=== PATIENT | male | born 1945 | race Caucasian/White ===

== ENCOUNTER 2024-01-31 08:24 | Day surgery (SDC) | payer MEDICARE ==
[2024-01-31] VITALS (17 sets, daily range): BP systolic 110–186; BP diastolic 52–97; PULSE 52–78; TEMP 97.9–98.4
[~2024-01-31] VITALS: Ht 180.3 cm; Wt 85.1 kg
[~2024-01-31 08:24] MED LIST: 1/2 NS 1,000 ML IV SCH
[2024-01-31] MEDS ORDERED: CENTRUM SILVER1 CTB PO (08:49)
[2024-01-31] MEDS ORDERED: TYLENOL 500MG500 MG PO (08:49)
[2024-01-31] MEDS ORDERED: PRAVACHOL 40MG40 MG PO (08:50)
[2024-01-31] MEDS ORDERED: TOPROL XL 50MG50 MG PO (08:50)
[2024-01-31] MEDS ORDERED: ASPIRIN 81M81 MG/TA2 PO (08:50)
[2024-01-31] MEDS ORDERED: MELATIN 3 MG-11 TAB PO (08:51)
[2024-01-31 09:12] LABS: HEMATOCRIT 49.2 % (42.0-52.0); HEMOGLOBIN 16.8 g/dl (13.5-18.0); MEAN CELL VOLUME 93 fl (80.0-100.0); MEAN CORPUSCULAR HEMOGLOBIN 32 pg (27-31); MEAN CORPUSCULAR HGB CONC 34 g/dl (33.0-37.0); MEAN PLATELET VOLUME 9.6 fl (7.4-10.4); PLATELET COUNT 230 K/mm3 (130-400); RED BLOOD COUNT 5.32 M/mm3 (4.20-5.60); REDCELL DISTRIBUTION WIDTH-CV 13.2 % (11.5-14.5)
[2024-01-31 09:15] LABS: INR 1.1 (0.8-3.0); PROTHROMBIN TIME 11.5 SECONDS (9.7-12.8)
[2024-01-31 09:17] LABS: PARTIAL THROMBOPLASTIN TIME 33.5 SECONDS (26.0-37.0)
[2024-01-31 09:26] LABS: CALCIUM 10.4 mg/dL (8.4-10.2); CREATININE, serum 1.03 mg/dL (0.72-1.25); POTASSIUM 4.5 mEq/L (3.5-4.5)
[2024-01-31] MEDS ORDERED: Nitroglycerin 100 MCG/ML (Cath Lab) 10 ML VIAL IA SCH (10:21)
[2024-01-31] MEDS ORDERED: Heparin 1,000 UNITS/ML 10 ML Multi-Dose VIAL IV SCH (10:22)
[2024-01-31] MEDS ORDERED: Verapamil 2.5 MG/ML 2 ML VIAL IA SCH (10:22)
--- NOTE | 2024-01-31 10:26 | NUR ---
See Merge report for procedural sedation/notes
[2024-01-31] MEDS ORDERED: Bivalirudin 250 MG in NS 50 ML IV SCH (10:38)
[2024-01-31] MEDS ORDERED: Iohexol 350 - 100 ML VIAL INCOR ONE (10:48)
[2024-01-31] MEDS ORDERED: Ticagrelor 90 MG TAB PO SCH ×2 (10:50→21:00)
[2024-01-31] MEDS ORDERED: fentaNYL 50 MCG/ML 2 ML VIAL IV SCH (10:56)
[2024-01-31] MEDS ORDERED: Midazolam 2 MG/2 ML VIAL IV SCH (10:57)
[2024-01-31] MEDS ORDERED: Bisacodyl 5 MG TAB PO PRN (11:00)
[2024-01-31] MEDS ORDERED: Melatonin 3 MG TAB PO PRN (11:00)
[2024-01-31] MEDS ORDERED: Magnes Hydrox (MOM) 80 MG/ML 30 ML CUP PO PRN (11:15)
[2024-01-31] MEDS ORDERED: 1/2 NS 1,000 ML IV SCH (11:15)
[2024-01-31] MEDS ORDERED: Acetaminophen 500 MG TAB PO PRN (11:15)
[2024-01-31] MEDS ORDERED: Ondansetron 4 MG/2 ML VIAL IV PRN (11:15)
--- NOTE | 2024-01-31 11:15 | NUR ---
Pt to Medical 317 - bedisde handoff performed with KOBI Beard: vitals initiated and stable, rt radial access site stable, call light in reach, tolerating po intake well.
--- NOTE | 2024-01-31 11:51 | NUR ---
Pt arrived to medical floor by bed from [facility]. Report received from KOBI Peacock. Admission assessment and intake completed. Home medications, pharmacy, and allergies reviewed. Rt radial cath site patent with scant drainage under radial compression band. No hematoma present. Pt denies pain at this time rating 0/10. Oriented pt to room, call light, and bathroom. Telemetry in place. Post op vital signs stable. IVF infusing into RAC with no complications. Pt has no complaints at this time. Call light within reach.
[2024-01-31] MEDS ORDERED: ASPIRIN 32325 MG/TAB PO (14:24)
[2024-01-31] MEDS ORDERED: TYLENOL PM EXTR1 TA1 PO (14:26)
[2024-01-31] MEDS ORDERED: DRAMAMINE 50MG50 MG PO (14:27)
--- NOTE | 2024-01-31 16:11 | NUR ---
Rt radial compression band removed. Heart cath insertion site CDI covered with bandaid. Pt has no complaints of pain at this time. Call light within reach.
[2024-01-31] MEDS ORDERED: Atorvastatin 80 MG TAB PO SCH (21:00)
--- NOTE | 2024-01-31 21:17 | NUR ---
patient lying in bed, alert and oriented x4. denies chest pain and shortnes of breath. IV in RAC is patent, site is CDI. right radial site bandaid falling off, new bandaid placed, CDI. pt educated of plan for the morning, verbally understood. pt has no further needs, questions, or concerns at this time. ambulating with steady gait. call light within reach. will continue to monitor,
[2024-02-01] VITALS (20 sets, daily range): BP systolic 109–186; BP diastolic 61–99; PULSE 68–102; TEMP 97.4–97.8
--- NOTE | 2024-02-01 01:36 | NUR ---
2340-pt reporting difficulty voiding, bladder distended. bladder scan performed, reading showed 820 mls, per orders straight cath performed getting 860 mls of blood tinged urine, upon removal of catheter, tip clogged off with blood clot. 3mls residual shown on post straight cath bladder scan. 0100- tele notified RN of pt in aflutter, vitals stable. 0130- Dr. Muir notified of bloody urine and aflutter, no new orders received at this time, will address in the morning per Dr. Muir. 0142- tele notified RN of pt in afib RVR. Dr. Muir notified, new orders received and placed at this time.
[2024-02-01] MEDS ORDERED: Amiodarone 450 MG in D5W Excel 250 ML IV SCH ×2 (02:00→08:08)
[2024-02-01 02:41] LABS: BASO # 0.1 K/mm3 (0.0-0.2); BASO % 0.6 % (0.0-2.0); EOS # 0.2 K/mm3 (0.0-0.7); GRAN # 10.3 K/mm3 (1.4-6.5); GRAN % 70.1 % (42.2-75.2); HEMATOCRIT 50.1 % (42.0-52.0); HEMOGLOBIN 17.7 g/dl (13.5-18.0); LYMPH # 2.9 K/mm3 (1.2-3.4); LYMPH % 19.5 % (20.0-51.0); MEAN CELL VOLUME 90 fl (80.0-100.0); MEAN CORPUSCULAR HEMOGLOBIN 32 pg (27-31); MEAN CORPUSCULAR HGB CONC 35 g/dl (33.0-37.0); MEAN PLATELET VOLUME 10.1 fl (7.4-10.4); MONO # 1.3 K/mm3 (0.1-0.6); MONO % 8.5 % (1.7-9.3); PLATELET COUNT 231 K/mm3 (130-400); RED BLOOD COUNT 5.55 M/mm3 (4.20-5.60); REDCELL DISTRIBUTION WIDTH-CV 12.8 % (11.5-14.5)
[2024-02-01 02:55] LABS: CALCIUM 10.4 mg/dL (8.4-10.2); CREATININE, serum 0.98 mg/dL (0.72-1.25); POTASSIUM 4.1 mEq/L (3.5-4.5)
--- NOTE | 2024-02-01 07:04 | NUR ---
Bedside report received from KOBI Stephens. Pt awake in bed with no complaints. Amiodarone gtt rate verifed with KOBI Stephens. Call light within reach.
--- NOTE | 2024-02-01 07:58 | NUR ---
Pt awake in bed eating breakfast. Shift assessment completed. VSS. Amiodarone infusing at 0.5mg/min per orders into RAC with no complications. Upon auscultation regular heart sounds noted. Rt radial site CDI with bandaid in place. Pt has not voided this AM. This nurse will bladder scan pt once pt done eating breakfast. Pt denies pain at this time rating 0/10. Pt ambulates independently with no complications. Pt has no request at this time. Call light within reach.
[2024-02-01 10:22] LABS: COLLECTION METHOD CLEAN CATCH
--- NOTE | 2024-02-01 10:57 | NUR ---
Bladder scan completed by KOBI Valles and noted 240mL. INT straight cath completed by this nurse and noted fowler red blood with clots in straight cath tubing. Dr. Knott notifed and instructed this nurse to consult urology. Dr. Cullen notifed of consult by phone. Dr. Cullen instructed this nurse to place order for urogram and to discontinue straight catheterization at this time. CT notifed of urogram order and notifed about amiodarone gtt. 20g IV placed into Lt hand x1 attempt by this nurse with no complications. Pt tolerated well with no complaints.
[2024-02-01 11:29] LABS: PH 8.5 (5.0-8.5); URINE APPEARANCE Turbid (CLEAR/HAZY); URINE COLOR RED (YELLOW); URINE GLUCOSE TRACE (NEGATIVE); URINE KETONE 2+ (NEGATIVE); URINE PROTEIN(semi-quant) 3+ (NEGATIVE)
[2024-02-01 11:30] LABS: URINE BLOOD 3+ (NEGATIVE); URINE NITRATE Positive (NEGATIVE); URINE UROBILINOGEN >8.0 E.U/dL (0.2-1.0)
[2024-02-01] MEDS ORDERED: Iohexol 300 - 100 ML VIAL IV ONE (12:20)
[2024-02-01] MEDS ORDERED: NS 100 ML IV SCH (12:21)
[2024-02-01] MEDS ORDERED: LIPITOR 80MG80 MG PO (13:17)
[2024-02-01] MEDS ORDERED: BRILINTA90 MG PO (13:17)
[2024-02-01] MEDS ORDERED: ASPIRIN 81M81 MG/TA2 PO (13:18)
--- NOTE | 2024-02-01 13:18 | NUR ---
Discussed when to contact the physician for signs of symptoms of complications or [place]. Also reviewed risk factors for heart disease. Covered applicable modifiable risk factors including the following: tobacco cessation, HTN, hyperlipidemia, diabetes, overweight/obesity, sedentary lifestyle, and stress/depression. Patient verbalized understanding. Referral sent to [facility] with patient's permission. Patient is concerned about driving -pt lives in [place]. Staff will f/u on Monday (02/05/24) to schedule iniital assessment.
--- NOTE | 2024-02-01 13:36 | NUR ---
MARIE to discontinue Amiodarone gtt from KOBI Carr per Dr. Knott by phone. Order read back and confirmed.
--- NOTE | 2024-02-01 14:30 | NUR ---
Discharge instructions provided to pt and pt verbalized understanding of discharge paperwork. Per Lilly RN with cardiology pt is to go to clinic to [facility]. This nurse provided instructions to pt and location of clinic. Pt verbalized understanding. INT to LH and RAC discontinued with tip intact, pt tolerated well with no complaints. Pt is leaving facility with [id number] back to home.
== END 2024-02-01 14:45 | disposition home or self-care (01) ==
LOC: MEDICAL 08:24 → COL.CAR 08:24 → MEDICAL 11:18 → COL.CAR 02-01 14:45
PROVIDERS: Internal Medicine Cardiovascular Disease
DX: I25.110 Atherosclerotic heart disease of native coronary artery with unstable angina pectoris (principal); N40.1 Benign prostatic hyperplasia with lower urinary tract symptoms; R33.8 Other retention of urine; R31.9 Hematuria, unspecified; N20.0 Calculus of kidney; Z79.899 Other long term (current) drug therapy; Z79.82 Long term (current) use of aspirin
CPT/HCPCS: OP; C1725; C1769; C1874; C1887; C9600; J0282; J0583; J1644; J2250; J3010; J7060; Q9967